=== PATIENT | male | born 1980 | race Caucasian/White ===

== ENCOUNTER 2021-01-28 07:28 | Day surgery (SDC) | payer MEDICAID, SELFPAY ==
[~2021-01-28] VITALS: Ht 154.9 cm; Wt 104.3 kg
[2021-01-28] MEDS ORDERED: LIDOCAINE 2%, 20 ML MDV INJ ONE (07:29)
[2021-01-28] MEDS ORDERED: DEXAMETHASONE SOD PHOSPHATE 4 MG/ML VIAL IVP ONE (07:29)
[2021-01-28] MEDS ORDERED: BUPIVACAINE /PF 0.25% 30 ML VIAL INJ ONE (07:29)
[2021-01-28] MEDS ORDERED: DIPHENHYDRAMINE INJ 50 MG/ML VIAL ONE (08:20)
[2021-01-28] MEDS ORDERED: MIDAZOLAM HCL 5 MG/5 ML VIAL ONE (08:21)
[2021-01-28 10:00] VITALS: BP_SYST 141
== END 2021-01-28 10:15 | disposition home or self-care (01) ==
LOC: SDS 07:28 → SMU 07:28 → SDS 10:15
PROVIDERS: ATTEND Internal Medicine
DX: M47.26 Other spondylosis with radiculopathy, lumbar region (principal); G89.29 Other chronic pain; E03.9 Hypothyroidism, unspecified; Z79.899 Other long term (current) drug therapy; Z20.828 Contact with and (suspected) exposure to other viral communicable diseases
CPT/HCPCS: 64483; 82962; J1100; J1200; J2001; J2250; J3490; U0003; 76000